=== PATIENT | male | born 1965 | race Caucasian/White ===

== ENCOUNTER 2017-10-08 13:03 | Emergency (ER) | payer SELFPAY | END 2017-10-08 14:55 | disposition home or self-care (01) | LOC: SCSER 13:03 | DX: J11.1 Influenza due to unidentified influenza virus with other respiratory manifestations (principal); F41.9 Anxiety disorder, unspecified; F31.9 Bipolar disorder, unspecified | CPT/HCPCS: 99283 ==

== ENCOUNTER 2018-04-14 20:55 | Emergency (ER) | payer BC, SELFPAY ==
[2018-04-14] MEDS ORDERED: Lidocaine 1% w/Epinephrine 1:100K 20 ML VIAL ONE (21:06)
[2018-04-14] MEDS ORDERED: Bacitracin Zinc 1 Packet ONE (21:53)
--- NOTE | 2018-04-14 22:14 | RAD ---
RADIOGRAPH LEFT FOREARM 2 VIEWS: DATE: 04/14/18 TIME: 9:13 p.m. HISTORY: 52-year-old male with foreign body: fishing hook. FINDINGS: There is a large treble fishing hook with one of the 3 hooks embedded within the soft tissues of the lateral aspect of the proximal forearm, adjacent to the proximal radius. No fracture or dislocation i s identified involving the radius or ulna. IMPRESSION: Large treble fishing hook impaled in the left proximal forearm soft tissues. POS: [facility]
== END 2018-04-14 22:12 | disposition home or self-care (01) ==
LOC: SCSER 20:55
DX: S50.852A Superficial foreign body of left forearm, initial encounter (principal); F31.9 Bipolar disorder, unspecified; W45.8XXA Other foreign body or object entering through skin, initial encounter
CPT/HCPCS: 10120; J2001

== ENCOUNTER 2022-07-23 13:12 | Outpatient (CLI) | payer BC | END 2022-07-23 13:13 | disposition home or self-care (01) | LOC: SCSMRI 13:12 | PROVIDERS: ATTEND Nurse Practitioner Family | DX: M50.11 Cervical disc disorder with radiculopathy, high cervical region (principal); M47.811 Spondylosis without myelopathy or radiculopathy, occipito-atlanto-axial region; M25.78 Osteophyte, vertebrae; M50.122 Cervical disc disorder at C5-C6 level with radiculopathy; M48.02 Spinal stenosis, cervical region; M50.123 Cervical disc disorder at C6-C7 level with radiculopathy; M47.813 Spondylosis without myelopathy or radiculopathy, cervicothoracic region; M48.03 Spinal stenosis, cervicothoracic region; M50.33 Other cervical disc degeneration, cervicothoracic region | CPT/HCPCS: 72141 ==